=== PATIENT | female | born 1995 | race Caucasian/White ===

== ENCOUNTER 2016-09-14 10:21 | Emergency (ER) | payer MEDICAID, OTHER ==
[~2016-09-14] VITALS: Wt 49.0 kg
[2016-09-14] MEDS ORDERED: IBUPROFEN 600 MG TAB PO ONE (13:30)
--- NOTE | 2016-09-14 14:21 | RADRPT ---
PROCEDURE: XR Sacrum and Coccyx. CLINICAL INDICATION: Low back pain TECHNIQUE: AP and lateral views of the sacrum and coccyx were performed. COMPARISON: No prior studies are available for comparison. FINDINGS: There is normal sacral and coccygeal mineralization and alignment. No fracture or subluxation is see n. The sacroiliac joints appear normal. The soft tissues are unremarkable. IMPRESSION: Unremarkable x-ray examination of the sacrum and coccyx. RPTAT: [facility] .Garry De León MD, Date Time Electronically viewed and signed by .Garry De León MD, on 09/14/2016 14:21 .B/
[2016-09-14] MEDS ORDERED: IBUP-1542 PO (14:28)
--- NOTE | 2016-09-14 14:35 | ERD ---
ER Documentation Chief Complaint Date/Time DATE: 09/14/16 TIME: 14:30 Chief Complaint LOW BACK PAIN FROM PICKING UP SOMETHING . NO DISTRESS, UNABLE TO BEND NOW HPI 21-year-old female complaining of lower back pain since yesterday. 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 She was unable to move for a while. The pain has been constant since then. Denies any other injuries. Denies saddle paresthesia. Denies bowel or bladder dysfunction. Denies peripheral paresthesias or weakness. ROS All systems reviewed and are negative except as per history of present illness. Medications Home Meds Active Scripts Ibuprofen* (Motrin*) 600 Mg Tab, 600 MG PO Q6H Y for PAIN AND OR ELEVATED TEMP, #30 TAB Prov:DMITRYLYNETTE X. RIG HAND 09/14/16 Allergies Allergies: Coded Allergies: No Known Allergy (Unverified , 09/14/16) PMhx/Soc History of Surgery: No Anesthesia Reaction: No Hx Neurological Disorder: No Hx Respiratory Disorders: Yes (Asthma) Hx Cardiac Disorders: No Hx Psychiatric Problems: No Hx Miscellaneous Medical Probl: Yes (Anemia) Hx Alcohol Use: Yes Hx Substance Use: No Hx Tobacco Use: No Smoking Status: Never smoker Physical Exam Vitals Vital Signs Date Time Temp Pulse Resp B/P Pulse Ox O2 Delivery O2 Flow Rate FiO2 09/14/16 10:41 98.6 96 20 119/57 100 Physical Exam General impression: Well-developed, well-nourished. Alert, oriented, in no acute distress Head: Normocephalic, atraumatic. Eyes: PERRL, EOM normal. Conjunctiva not injected. Neck: Supple, nontender. No lymphadenopathy. No nuchal rigidity. Respiration: Normal respiratory effort. Lungs clear to auscultate bilaterally. No wheezes, rales or rhonchi. Cardiovascular: Regular rate and rhythm. No murmurs or extra heart sounds. Abdomen: Abdomen normal to inspection. Nontender. No masses or organomegaly. Bowel sounds normal. Back: Normal to inspection. Slight sacral tenderness, no other midline spine tenderness. No CVA tenderness. Muscle spasm noted bilateral to the sacrum. Decreased range of motion of the lower back. Extremities: Extremities normal to inspection, nontender. ROM normal. Neuro: Mental status normal, speech normal. [employer] grossly intact. Skin: Normal turgor. No rash or lesions. Psych: Normal mood and affect. Results 24 hrs Current Medications Medications (Trade) Dose Ordered Sig/Imani Route PRN Reason Start Time Stop Time Status Last Admin Dose Admin Ibuprofen (Motrin) 600 mg ONCE ONCE PO 09/14/16 13:30 09/14/16 13:31 DC 09/14/16 13:35 Procedures/MDM Well-appearing 21-year-old female presented to ED with low back pain after injury yesterday. X-ray of the sacrum and coccyx was unremarkable. Likely patient has sustained the muscle strain in her lower back. Low suspicion for spinal fractures, subluxation, disc herniation, spinal epidural abscess, or cauda equina syndrome. Patient given ibuprofen in the ED for pain. Patient appears well, stable for discharge and outpatient management. Medical decision making shared with patient and family. Education provided to patient and family. Patient and family expressed understanding of the plan. Medications on discharge: Ibuprofen. Follow-up: Primary care provider in 2-3 days or return to ED if worse. Departure Diagnosis: Primary Impression: Low back strain Encounter type: initial encounter Qualified Code: S39.012A - Low back strain , initial encounter Condition: Good Patient Instructions: Back Sprain/Strain Referrals: COUNT INCLUDES THE [facility] YOU HAVE RECEIVED A MEDICAL SCREENING EXAM AND THE RESULTS INDICATE THAT YOU DO NOT HAVE A CONDITION THAT REQUIRES URGENT TREATMENT IN THE EMERGENCY DEPARTMENT. FURTHER EVALUATION AND TREATMENT OF YOUR CONDITION CAN WAIT UNTIL YOU ARE SEEN IN YOUR DOCTORS OFFICE WITHIN THE NEXT 1-2 DAYS. IT IS YOUR RESPONSIBILITY TO MAKE AN APPOINTMENT FOR FOLOW-UP CARE. IF YOU HAVE A PRIMARY DOCTOR --you should call your primary doctor and schedule an appointment IF YOU DO NOT HAVE A PRIMARY DOCTOR YOU CAN CALL OUR PHYSICIAN REFERRAL HOTLINE AT IF YOU CAN NOT AFFORD TO SEE A PHYSICIAN YOU CAN CHOSE FROM THE FOLLOWING COUNT INCLUDES THE [facility] [address] [facility] [address] [facility] [address] [facility] [address] [facility] [address] [facility] [facility] [address] Additional Instructions: Call your primary care doctor TOMORROW for an appointment during the next 2-3 days.See the doctor sooner or return here if your condition worsens before your appointment time. LYNETTE ANDRES NP Sep 14, 2016 14:34
== END 2016-09-14 14:43 | disposition home or self-care (01) ==
LOC: FTE 10:21
DX: S39.012A Strain of muscle, fascia and tendon of lower back, initial encounter (principal); J45.909 Unspecified asthma, uncomplicated; X50.1XXA Overexertion from prolonged static or awkward postures, initial encounter; Y92.9 Unspecified place or not applicable
CPT/HCPCS: 72220; Z7502; Z7610